=== PATIENT | male | born 1945 | race Caucasian/White ===

== ENCOUNTER → 2018-10-07 | Outpatient (CLI) | payer MEDICARE, OTHER ==
[~2018-10-07] MED LIST: ASPIR 8181 MG PO; CARDURA4 MG PO; FLAX OIL1000 MG PO; FLOVENT DISKUS50 MCG; FOLIC ACID0.8 MG PO; LIPITOR10 MG PO; LOVAZA1 GM PO; MULTIVITAMINS1 EAC8; NIASPAN500 MG PO; VITAMIN C500 M1 PO; VITAMIN E400 UNI3 PO
--- NOTE | 2018-10-07 08:59 | Diagnostic Imaging Report ---
MRI BRAIN WO HISTORY: TIA COMPARISON: None. TECHNIQUE: Sagittal T2, axial T2, axial T1, axial T2/FLAIR, axial gradient echo (or susceptibility weighted), coronal T2/FLAIR, and axial diffusion weighted MR images of the brain were obtained without contrast. DISCUSSION: Scalp/bone marrow: Unremarkable. Brain sulci: Appropriate for patient's age. Ventricles: Normal in size and configuration. No hydrocephalus. Extra-axial spaces: No masses or fluid collections. Parenchyma: Scattered T2/FLAIR hyperintense foci throughout the supratentorial white matter are likely chronic microvascular ischemic changes. Mild symmetric globi pallidi magnetic susceptibility is likely due to physiologic calcification. Otherwise, no mass, hemorrhage, or acute vascular insults. Vessels: The intracranial right internal carotid artery appears mildly ectatic. Otherwise, unremarkable. Sellar/Suprasellar region: No abnormalities. Craniocervical junction: No abnormalities. Incidental findings: Both ocular lenses are thinned. IMPRESSION: 1. No acute intracranial abnormalities. 2. Mild to moderate supratentorial chronic microvascular ischemic change. Signed by: Dr. Dwayne Sylvester M.D. on 10/07/2018 8:56 AM
== END ==
LOC: MRI 07:20
PROVIDERS: ATTEND Family Medicine
DX: Z86.73 Personal history of transient ischemic attack (TIA), and cerebral infarction without residual deficits (principal)
CPT/HCPCS: 70551

== ENCOUNTER → 2019-04-21 | Day surgery (SDC) | payer MEDICARE, OTHER ==
[2019-04-14 12:04] LABS: BASOPHILS # (AUTO) 0.1 (0.0-0.1); EOSINOPHILS # (AUTO) 0.1 (0.0-0.4); HEMATOCRIT 38.8 % (38.2-49.6); HEMOGLOBIN 13.1 g/dL (14.0-18.0); LYMPHOCYTES # (AUTO) 1.9 (1.0-3.2); LYMPHOCYTES % 36.4 % (18.0-39.1); MEAN CORPUSCULAR HEMOGLOBIN 32.2 pg (28-32); MEAN CORPUSCULAR HGB CONC 33.8 g/dL (31-35); MEAN CORPUSCULAR VOLUME 95.3 fL (81-99); MONOCYTES # (AUTO) 0.4 (0.2-0.8); MONOCYTES % 8.4 % (4.4-11.3); NEUTROPHILS # (AUTO) 2.8 (2.1-6.9); PLATELET COUNT 202 x10e3/uL (140-360); RED BLOOD COUNT 4.07 x10e6/uL (4.3-5.7)
[~2019-04-21] MED LIST changes: +CIALIS5 MG PO; +FENTANYL CITRATE/PF 100MCG/2 ML INJ ONE; +FLOMAX0.4 MG PO; +HYOSCYAMINE 0.125 MG TAB ONE; +IBUPROFEN400 MG PO; +PROPOFOL IV EMULSION 10 MG/ML 50 ML VIAL ONE; +vascepa PO
--- OUTSIDE RECORDS SUMMARY | 2019-04-21 11:27 | XMS REPORT ---
Author Author [facility] Address Unknown Phone Unavailable Care Team Providers Care Managing Manager Name Role Phone BART ROY Unavailable Unavailable Problems This patient has no known problems. Allergies, Adverse Reactions, Alerts This patient has no known allergies or adverse reactions. Medications This patient has no known medications. Results Test Description Test Time Test Comments Text Results Atomic Results Result Comments MRI BRAIN WO 2018-10-07 08:52:00 [facility] [address] [address] Patient Name: FELICIA ZEPEDA MR #: [id number] : 1945 Age/Sex: 73/M Req #: [id number] Adm Physician: Ordered by: ROY ANDREW DO Report #: [id number] Location: MRI Room/Bed: Procedure: [id number] MRI/MRI BRAIN WO Exam Date: Exam Time: REPORT STATUS: Signed MRI BRAIN WO HISTORY: TIA COMPARISON: None. TECHNIQUE: S agittal T2, axial T2, axial T1, axial T2/FLAIR, axial gradient echo (or susceptibility weighted), coronal T2/FLAIR, and axial diffusion weighted MR images of the brain were obtained without contrast. DISCUSSION: Scalp/bone marrow: Unremarkable. Brain sulci: Appropriate for patient's age. Ventricles: Normal in size and configuration. No hydrocephalus. Extra-axial spaces: No masses or fluid collections. Parenchyma: Scattered T2/FLAIR hyperintense foci throughout the supratentorial white matter are likely chronic microvascular ischemic changes. Mild symmetric globi pallidi magnetic susceptibility is likely due to physiologic calcification. Otherwise, no mass, hemorrhage, or acute vascular insults. Vessels: The intracranial right internal carotid artery appears mildly ectatic. Otherwise, unremarkable. Sellar/Suprasellar region: No abnormalities. Craniocervical junction: No abnormalities. Incidental findings: Both ocular lenses are thinned. IMPR ESSION: 1. No acute intracranial abnormalities. 2. Mild to moderate supratentorial chronic microvascular ischemic change. Signed by: Dr. Dwayne Saucedo M.D. on 10/07/2018 8:56 AM Dictated By: DWAYNE SAUCEDO MD Transcribed By: ANGELIQUE on 10/07/18855 COPY TO: BART ROY DO
[2019-04-21 16:10] VITALS: BP 129/77
--- NOTE | 2019-04-21 23:59 | Operative Report ---
DATE OF PROCEDURE: 04/21/2019 SURGEON: Arcenio Peraza MD PROCEDURE: Colonoscopy with biopsies. INDICATIONS FOR COLONOSCOPY: Surveillance colonoscopy, personal history of colon polyps. MEDICATIONS: The patient was done under MAC. Please see anesthesiologist's note. PROCEDURE IN DETAIL: With the patient in left lateral decubitus position, a flexible fiberoptic Olympus colonoscope was inserted into the rectum with ease and advanced all the way to the cecum. The scope was then withdrawn slowly. Mucosa overlying the cecum, ascending colon, transverse colon, and descending colon grossly appeared to be within normal limits. Some diverticular disease was noted in the sigmoid colon. There were mild patchy inflammatory changes noted in the sigmoid and rectum. Random biopsies were obtained. The scope was then retroflexed into the distal rectum and large internal hemorrhoids were noted, none of which was actively bleeding. The scope was then straightened out and it was subsequently withdrawn. The patient tolerated procedure well. IMPRESSION: 1. Mild patchy proctosigmoiditis. 2. Diverticulosis. 3. Internal hemorrhoids, none actively bleeding. PLAN: Follow up histology. Initiate high-fiber, low-fat diet. Initiate high-fiber supplement. The patient might benefit from a followup colonoscopy in five years. Arcenio Peraza MD [facility] [place]/JOSE ANTONIO /[id number] cc: Jarrod Villalta DO
== END | disposition home or self-care (01) ==
LOC: OR 11:11
PROVIDERS: ATTEND Internal Medicine Gastroenterology
DX: Z09 Encounter for follow-up examination after completed treatment for conditions other than malignant neoplasm (principal); Z86.010 Personal history of colon polyps; K63.89 Other specified diseases of intestine; K57.30 Diverticulosis of large intestine without perforation or abscess without bleeding; K64.8 Other hemorrhoids; K59.09 Other constipation; I45.10 Unspecified right bundle-branch block; Z01.810 Encounter for preprocedural cardiovascular examination; Z01.812 Encounter for preprocedural laboratory examination; Z87.442 Personal history of urinary calculi
CPT/HCPCS: 36415; 45380; 85025; 88305; 93005; J2704; J3010; 45378